=== PATIENT | female | born 1980 | race Caucasian/White ===

== ENCOUNTER → 2021-02-05 | Outpatient (REF) | payer OTHER | LOC: M LAB REF 16:23 | PROVIDERS: ATTEND Surgery | DX: L72.0 Epidermal cyst (principal) ==

== ENCOUNTER → 2021-03-31 | Outpatient (REF) | payer OTHER ==
[~2021-03-31] MED LIST: AMIT25TA17 PO; DULO1CAP6 PO; INSUH10VL; LARI1TAB5 PO; OMEP-221 PO
== END ==
LOC: M SFHCPLAZ 12:57
PROVIDERS: ATTEND Internal Medicine Infectious Disease
DX: L02.93 Carbuncle, unspecified (principal)